=== PATIENT | male | born 1960 | race African-American/Black ===

== ENCOUNTER 2021-03-06 11:23 | Emergency (ER) | payer OTHER ==
[~2021-03-06] VITALS: Ht 172.7 cm; Wt 80.0 kg
[2021-03-06] MEDS ORDERED: HYDROcodone/APAP 5/325 TABLET PO PRN (12:00)
--- NOTE | 2021-03-06 12:06 | NUR ---
ice pack given to pt
[2021-03-06] MEDS ORDERED: HYDROcodone/APAP 5/325 TABLET ONE (12:09)
--- NOTE | 2021-03-06 13:14 | NUR ---
Report from RUBÉN Dumont. Pt resting on CHICHI salgado.
[2021-03-06 14:44] VITALS: BP 103/69
== END 2021-03-06 14:47 | disposition home or self-care (01) ==
LOC: ED 12:07
DX: S76.811A Strain of other specified muscles, fascia and tendons at thigh level, right thigh, initial encounter (principal); R94.31 Abnormal electrocardiogram [ECG] [EKG]; W01.0XXA Fall on same level from slipping, tripping and stumbling without subsequent striking against object, initial encounter; Y93.89 Activity, other specified; Y92.410 Unspecified street and highway as the place of occurrence of the external cause; Y99.8 Other external cause status
CPT/HCPCS: 93005; 99284